=== PATIENT | male | born 1950 | race Caucasian/White ===

== ENCOUNTER → 2021-05-23 14:03 | Outpatient (CLI) | payer MEDICARE, OTHER, SELFPAY ==
[2021-05-23 15:38] LABS: Alanine Aminotransferase 20 U/L (12-78); Albumin Level 4.3 g/dl (3.5-5.0); Albumin/Globulin Ratio 1.3 (1.1-1.8); Alkaline Phosphatase 85 U/L (38-126); Anion Gap 11.7 mEq/L (5-15); Aspartate Amino Transferase 30 U/L (17-59); Bilirubin,Total 1.8 mg/dl (0.2-1.3); Blood Urea Nitrogen 16 mg/dl (9-20); Carbon Dioxide 28 mmol/L (22.0-30.0); Chloride 105 mmol/L (98-107); Chol/HDL Ratio 3.3 (1-3.5); Cholesterol 138 mg/dl (140-200); Estimated Glomerular Filt Rate 96 ml/min (>60); GFR (African American) 116 ML/MIN (>60); Globulin 3.2 g/dL (1.3-3.2); Glucose 103 mg/dl (74-100); HDL Cholesterol 42 mg/dl (40-60); Potassium 5.7 mmoL/L (3.5-5.1); Sodium 139 mmol/L (136-145); Total Protein,Serum 7.5 g/dl (6.3-8.2); Triglycerides 91 mg/dl (30-150); VLDL Cholesterol 18 mg/dL (0-40)
[2021-05-23 15:49] LABS: Direct LDL Cholesterol 73.48 mg/dL (100-129)
[2021-05-23 16:07] LABS: Prostate Specific Ag Screen 1.1 ng/ml (0.0-4.0)
== END ==
LOC: LAB 14:04 → LAB.DROPOF 14:05
PROVIDERS: Visit Provider Internal Medicine
DX: I10 Essential (primary) hypertension (principal); I48.0 Paroxysmal atrial fibrillation; R73.01 Impaired fasting glucose; E78.5 Hyperlipidemia, unspecified; N41.9 Inflammatory disease of prostate, unspecified; Z12.5 Encounter for screening for malignant neoplasm of prostate
CPT/HCPCS: 80053; 80061; G0103

== ENCOUNTER → 2021-11-27 14:10 | Outpatient (CLI) | payer MEDICARE, OTHER, SELFPAY ==
[2021-11-27 15:15] LABS: Basophils # 0.1 K/mm3 (0-0.2); Basophils % 1.1 % (0.1-2.0); Eosinophils # 0.2 K/mm3 (0.0-0.4); Eosinophils % 2.4 % (0.1-12.0); Hematocrit 44.9 % (42.0-52.0); Hemoglobin 15.3 g/dL (14.1-18.0); Lymphocytes # 2.5 K/mm3 (0.7-4.5); Lymphocytes % 39.4 % (10-50); Mean Corpuscular HGB Conc 34.1 g/dL (31.8-35.4); Mean Corpuscular Hemoglobin 32.1 pg (27.0-31.2); Mean Corpuscular Volume 94.1 fl (80-94); Mean Platelet Volume 9.5 fl (7.4-10.4); Monocytes # 0.4 K/mm3 (0.1-1.0); Monocytes % 6.9 % (1.7-9.3); Neutrophils # 3.1 K/mm3 (1.8-7.8); Neutrophils % 50.2 % (37.0-80.0); Platelet Count 216 K/mm3 (142-424); Red Blood Count 4.77 M/mm3 (4.60-6.20); White Blood Count 6.3 K/mm3 (4.8-10.8)
[2021-11-27 15:34] LABS: Alanine Aminotransferase 18 U/L (12-78); Albumin/Globulin Ratio 1.3 (1.1-1.8); Alkaline Phosphatase 94 U/L (38-126); Anion Gap 10.8 mEq/L (5-15); Aspartate Amino Transferase 26 U/L (17-59); Bilirubin,Total 1.3 mg/dl (0.2-1.3); Blood Urea Nitrogen 15 mg/dl (9-20); Calcium 8.5 mg/dl (8.4-10.2); Carbon Dioxide 28 mmol/L (22.0-30.0); Chloride 105 mmol/L (98-107); Chol/HDL Ratio 4.1 (1-3.5); Cholesterol 118 mg/dl (140-200); Estimated Glomerular Filt Rate 74 ml/min (>60); GFR (African American) 90 ML/MIN (>60); Glucose 100 mg/dl (74-100); HDL Cholesterol 29 mg/dl (40-60); Potassium 4.8 mmoL/L (3.5-5.1); Sodium 139 mmol/L (136-145); Triglycerides 126 mg/dl (30-150); VLDL Cholesterol 25 mg/dL (0-40)
[2021-11-27 15:45] LABS: Direct LDL Cholesterol 60.49 mg/dL (100-129)
== END ==
PROVIDERS: PCP Internal Medicine; Visit Provider Internal Medicine
DX: I48.0 Paroxysmal atrial fibrillation (principal); I10 Essential (primary) hypertension; R73.01 Impaired fasting glucose; E78.5 Hyperlipidemia, unspecified
CPT/HCPCS: 80053; 80061; 85025

== ENCOUNTER → 2022-05-30 12:06 | Outpatient (CLI) | payer MEDICARE, OTHER, SELFPAY ==
[2022-05-30 14:19] LABS: Chloride 101 mmol/L (98-107)
[2022-05-30 14:20] LABS: Potassium 4.8 mmoL/L (3.5-5.1)
[2022-05-30 14:22] LABS: Blood Urea Nitrogen 17 mg/dl (9-20); Estimated Glomerular Filt Rate 83 ml/min (>60); GFR (African American) 101 ML/MIN (>60)
[2022-05-30 14:23] LABS: Alanine Aminotransferase 21 U/L (12-78); Albumin Level 4.4 g/dl (3.5-5.0); Albumin/Globulin Ratio 1.3 (1.1-1.8); Alkaline Phosphatase 102 U/L (38-126); Aspartate Amino Transferase 30 U/L (17-59); Bilirubin,Total 1.5 mg/dl (0.2-1.3); Calcium 9.3 mg/dl (8.4-10.2); Carbon Dioxide 28 mmol/L (22.0-30.0); Cholesterol 148 mg/dl (140-200); Globulin 3.4 g/dL (1.3-3.2); Glucose 101 mg/dl (74-100); HDL Cholesterol 33 mg/dl (40-60); Total Protein,Serum 7.8 g/dl (6.3-8.2); Triglycerides 146 mg/dl (30-150); VLDL Cholesterol 29 mg/dL (0-40)
[2022-05-30 14:24] LABS: Chol/HDL Ratio 4.5 (1-3.5)
[2022-05-30 14:34] LABS: Direct LDL Cholesterol 70.85 mg/dL (100-129)
[2022-05-30 15:04] LABS: Prostate Specific Ag Screen 1.1 ng/ml (0.0-4.0)
[2022-05-30 15:42] LABS: Anion Gap 16.8 mEq/L (5-15); Sodium 141 mmol/L (136-145)
== END ==
PROVIDERS: PCP Internal Medicine; Visit Provider Internal Medicine
DX: R73.01 Impaired fasting glucose (principal); E78.5 Hyperlipidemia, unspecified; I10 Essential (primary) hypertension; N40.1 Benign prostatic hyperplasia with lower urinary tract symptoms; Z12.5 Encounter for screening for malignant neoplasm of prostate
CPT/HCPCS: 80053; 80061; G0103

== ENCOUNTER → 2023-02-12 13:31 | Outpatient (CLI) | payer MEDICARE, OTHER, SELFPAY ==
[2023-02-12 15:33] LABS: Basophils # 0.1 K/mm3 (0-0.2); Basophils % 0.7 % (0.1-2.0); Eosinophils # 0.1 K/mm3 (0.0-0.4); Eosinophils % 2.1 % (0.1-12.0); Hematocrit 49.3 % (42.0-52.0); Hemoglobin 15.8 g/dL (14.1-18.0); Lymphocytes # 2.2 K/mm3 (0.7-4.5); Lymphocytes % 33.2 % (10-50); Mean Corpuscular Hemoglobin 30.2 pg (27.0-31.2); Mean Corpuscular Volume 94.4 fl (80-94); Mean Platelet Volume 9.1 fl (7.4-10.4); Monocytes # 0.5 K/mm3 (0.1-1.0); Monocytes % 8.1 % (1.7-9.3); Neutrophils # 3.6 K/mm3 (1.8-7.8); Neutrophils % 55.8 % (37.0-80.0); Platelet Count 215 K/mm3 (142-424); Red Blood Count 5.22 M/mm3 (4.60-6.20); Red Cell Distribution Width 13.7 % (11.5-17.5); White Blood Count 6.5 K/mm3 (4.8-10.8)
[2023-02-12 16:36] LABS: Alanine Aminotransferase 23 U/L (12-78); Albumin Level 4.3 g/dl (3.5-5.0); Albumin/Globulin Ratio 1.2 (1.1-1.8); Alkaline Phosphatase 111 U/L (38-126); Anion Gap 14.4 mEq/L (5-15); Aspartate Amino Transferase 27 U/L (17-59); Bilirubin,Total 1.4 mg/dl (0.2-1.3); Blood Urea Nitrogen 20 mg/dl (9-20); Calcium 8.7 mg/dl (8.4-10.2); Carbon Dioxide 28 mmol/L (22.0-30.0); Chloride 105 mmol/L (98-107); Cholesterol 136 mg/dl (140-200); Estimated Glomerular Filt Rate 66 ml/min (>60); GFR (African American) 80 ML/MIN (>60); Globulin 3.5 g/dL (1.3-3.2); Glucose 109 mg/dl (74-100); HDL Cholesterol 34 mg/dl (40-60); Potassium 5.4 mmoL/L (3.5-5.1); Sodium 142 mmol/L (136-145); Total Protein,Serum 7.8 g/dl (6.3-8.2); Triglycerides 130 mg/dl (30-150); VLDL Cholesterol 26 mg/dL (0-40)
[2023-02-12 16:47] LABS: Direct LDL Cholesterol 71.73 mg/dL (100-129)
== END ==
PROVIDERS: PCP Internal Medicine; Visit Provider Internal Medicine
DX: I10 Essential (primary) hypertension (principal); I48.0 Paroxysmal atrial fibrillation; R73.01 Impaired fasting glucose; E78.5 Hyperlipidemia, unspecified; M17.12 Unilateral primary osteoarthritis, left knee; N41.9 Inflammatory disease of prostate, unspecified
CPT/HCPCS: 80053; 80061; 85025

== ENCOUNTER 2023-08-16 12:34 | Outpatient (CLI) | payer MEDICARE, OTHER, SELFPAY ==
[2023-08-16 15:15] LABS: Alanine Aminotransferase 22 U/L (12-78); Albumin Level 4.4 g/dl (3.5-5.0); Albumin/Globulin Ratio 1.2 (1.1-1.8); Alkaline Phosphatase 83 U/L (38-126); Anion Gap 13.4 mEq/L (5-15); Aspartate Amino Transferase 33 U/L (17-59); Bilirubin,Total 1.7 mg/dl (0.2-1.3); Blood Urea Nitrogen 18 mg/dl (9-20); Calcium 8.7 mg/dl (8.4-10.2); Carbon Dioxide 27 mmol/L (22.0-30.0); Chloride 106 mmol/L (98-107); Chol/HDL Ratio 4.4 (1-3.5); Cholesterol 128 mg/dl (140-200); Estimated Glomerular Filt Rate 83 ml/min (>60); GFR (African American) 101 ML/MIN (>60); Globulin 3.6 g/dL (1.3-3.2); Glucose 109 mg/dl (74-100); HDL Cholesterol 29 mg/dl (40-60); Potassium 5.4 mmoL/L (3.5-5.1); Sodium 141 mmol/L (136-145); Triglycerides 131 mg/dl (30-150); VLDL Cholesterol 26 mg/dL (0-40)
[2023-08-16 15:25] LABS: Direct LDL Cholesterol 69.66 mg/dL (100-129)
[2023-08-16 15:44] LABS: Prostate Specific Ag Screen 0.6 ng/ml (0.0-4.0)
== END 2023-08-16 23:59 ==
LOC: LAB.DROPOF 12:36
PROVIDERS: PCP Internal Medicine; Visit Provider Internal Medicine
DX: I10 Essential (primary) hypertension (principal); I48.91 Unspecified atrial fibrillation; E78.5 Hyperlipidemia, unspecified; M17.12 Unilateral primary osteoarthritis, left knee; N40.1 Benign prostatic hyperplasia with lower urinary tract symptoms; Z12.5 Encounter for screening for malignant neoplasm of prostate
CPT/HCPCS: 80053; 80061; G0103

== ENCOUNTER 2024-02-13 18:23 | Outpatient (CLI) | payer MEDICARE, OTHER, SELFPAY ==
[2024-02-13 12:17] LABS: Basophils # 0.1 K/mm3 (0-0.2); Basophils % 0.9 % (0.1-2.0); Eosinophils # 0.1 K/mm3 (0.0-0.4); Eosinophils % 2.3 % (0.1-12.0); Hematocrit 47.2 % (42.0-52.0); Hemoglobin 15.5 g/dL (14.1-18.0); Lymphocytes % 33.6 % (10-50); Mean Corpuscular HGB Conc 32.8 g/dL (31.8-35.4); Mean Corpuscular Hemoglobin 31.9 pg (27.0-31.2); Mean Corpuscular Volume 97.1 fl (80-94); Mean Platelet Volume 8.6 fl (7.4-10.4); Monocytes # 0.4 K/mm3 (0.1-1.0); Monocytes % 6.6 % (1.7-9.3); Neutrophils # 3.4 K/mm3 (1.8-7.8); Neutrophils % 56.6 % (37.0-80.0); Platelet Count 204 K/mm3 (142-424); Red Blood Count 4.86 M/mm3 (4.60-6.20); Red Cell Distribution Width 14.2 % (11.5-17.5)
[2024-02-13 12:47] LABS: Alanine Aminotransferase 19 U/L (12-78); Albumin/Globulin Ratio 1.1 (1.1-1.8); Alkaline Phosphatase 101 U/L (38-126); Anion Gap 11.4 mEq/L (5-15); Aspartate Amino Transferase 23 U/L (17-59); Bilirubin,Total 1.3 mg/dl (0.2-1.3); Blood Urea Nitrogen 20 mg/dl (9-20); Calcium 8.8 mg/dl (8.4-10.2); Carbon Dioxide 26 mmol/L (22.0-30.0); Chloride 107 mmol/L (98-107); Chol/HDL Ratio 3.4 (1-3.5); Cholesterol 119 mg/dl (140-200); Estimated Glomerular Filt Rate 73 ml/min (>60); GFR (African American) 89 ML/MIN (>60); Globulin 3.6 g/dL (1.3-3.2); Glucose 117 mg/dl (74-100); HDL Cholesterol 35 mg/dl (40-60); Potassium 4.4 mmoL/L (3.5-5.1); Sodium 140 mmol/L (136-145); Total Protein,Serum 7.6 g/dl (6.3-8.2); Triglycerides 101 mg/dl (30-150); VLDL Cholesterol 20 mg/dL (0-40)
[2024-02-13 12:58] LABS: Direct LDL Cholesterol 57.78 mg/dL (100-129)
== END 2024-02-13 23:59 | disposition home or self-care (01) ==
LOC: LAB.DROPOF 18:24
PROVIDERS: PCP Internal Medicine; Visit Provider Internal Medicine
DX: E78.5 Hyperlipidemia, unspecified (principal); I10 Essential (primary) hypertension; R73.02 Impaired glucose tolerance (oral)
CPT/HCPCS: 80053; 80061; 85025

== ENCOUNTER 2024-08-13 12:26 | Outpatient (CLI) | payer MEDICARE, OTHER, SELFPAY ==
[2024-08-13 12:58] LABS: Albumin Level 4.2 g/dl (3.5-5.0); Chloride 105 mmol/L (98-107); Sodium 139 mmol/L (136-145)
[2024-08-13 13:01] LABS: Alanine Aminotransferase 23 U/L (12-78); Albumin/Globulin Ratio 1.4 (1.1-1.8); Alkaline Phosphatase 92 U/L (38-126); Aspartate Amino Transferase 29 U/L (17-59); Bilirubin,Total 1.7 mg/dl (0.2-1.3); Blood Urea Nitrogen 19 mg/dl (9-20); Calcium 8.7 mg/dl (8.4-10.2); Carbon Dioxide 26 mmol/L (22.0-30.0); Chol/HDL Ratio 3.9 (1-3.5); Cholesterol 125 mg/dl (140-200); Estimated Glomerular Filt Rate 73 ml/min (>60); GFR (African American) 89 ML/MIN (>60); Globulin 3.1 g/dL (1.3-3.2); Glucose 113 mg/dl (74-100); HDL Cholesterol 32 mg/dl (40-60); Total Protein,Serum 7.3 g/dl (6.3-8.2); Triglycerides 131 mg/dl (30-150); VLDL Cholesterol 26 mg/dL (0-40)
[2024-08-13 13:13] LABS: Direct LDL Cholesterol 64.09 mg/dL (100-129)
== END 2024-08-13 23:59 | disposition home or self-care (01) ==
LOC: LAB.DROPOF 12:26
PROVIDERS: PCP Internal Medicine; Visit Provider Internal Medicine
DX: I48.0 Paroxysmal atrial fibrillation (principal); E78.5 Hyperlipidemia, unspecified; I10 Essential (primary) hypertension; R73.02 Impaired glucose tolerance (oral)
CPT/HCPCS: 80053; 80061

== ENCOUNTER 2025-02-11 09:10 | Outpatient (CLI) | payer MEDICARE, OTHER, SELFPAY ==
[2025-02-11 09:53] LABS: Hematocrit 51.2 % (42.0-52.0); Hemoglobin 17.1 g/dL (14.1-18.0); Immature Granulocytes % 0.2 %; Mean Corpuscular HGB Conc 33.4 g/dL (31.8-35.4); Mean Corpuscular Hemoglobin 31.1 pg (27.0-31.2); Mean Corpuscular Volume 93.3 fl (80-94); Nucleated Red Blood Cells % 0 %; Platelet Count 170 K/mm3 (142-424); Red Blood Count 5.49 M/mm3 (4.60-6.20); Red Cell Distribution Width-SD 43.8 fL; White Blood Count 6.2 K/mm3 (4.8-10.8)
[2025-02-11 10:35] LABS: Albumin Level 4.0 g/dl (3.5-5.0); Chloride 104 mmol/L (98-107); Potassium 4.8 mmoL/L (3.5-5.1); Sodium 138 mmol/L (136-145)
[2025-02-11 10:38] LABS: Alanine Aminotransferase 19 U/L (12-78); Albumin/Globulin Ratio 0.9 (1.1-1.8); Alkaline Phosphatase 106 U/L (38-126); Anion Gap 9.8 mEq/L (5-15); Aspartate Amino Transferase 26 U/L (17-59); Bilirubin,Total 1.4 mg/dl (0.2-1.3); Blood Urea Nitrogen 17 mg/dl (9-20); Carbon Dioxide 29 mmol/L (22.0-30.0); Cholesterol 139 mg/dl (140-200); Creatinine,Serum 1.00 mg/dl (0.66-1.25); Estimated Glomerular Filt Rate 73 ml/min (>60); GFR (African American) 89 ML/MIN (>60); Globulin 4.4 g/dL (1.3-3.2); Total Protein,Serum 8.4 g/dl (6.3-8.2); Triglycerides 127 mg/dl (30-150)
[2025-02-11 10:39] LABS: Calcium 9.4 mg/dl (8.4-10.2); Glucose 130 mg/dl (74-100); HDL Cholesterol 41 mg/dl (40-60)
== END 2025-02-11 23:59 | disposition home or self-care (01) ==
LOC: LAB.DROPOF 02-12 13:51
PROVIDERS: PCP Internal Medicine; Visit Provider Internal Medicine
DX: I48.0 Paroxysmal atrial fibrillation (principal); R73.02 Impaired glucose tolerance (oral); E78.5 Hyperlipidemia, unspecified; I10 Essential (primary) hypertension
CPT/HCPCS: 80053; 80061; 85025

== ENCOUNTER 2025-05-31 15:36 | Outpatient (CLI) | payer MEDICARE, OTHER, SELFPAY ==
--- NOTE | 2025-05-31 15:40 | XR_ITS ---
FINAL REPORT TECHNIQUE: 3 views lumbar spine CLINICAL HISTORY: Lumbago with left sciatica COMPARISON: None FINDINGS: LUMBAR SPINE: AP and lateral views of the lumbar spine were obtained. There is no prior exam for comparison. There is no acute fracture or malalignment. Vertebral body height is preserved. Disc space narrowing at the L4-5 and L5-S1 levels. Moderate anterior osteophytes are present. There is moderate facet sclerosis in the lower lumbar spine. No acute paraspinal abnormality. IMPRESSION: Degenerative change of the lower lumbar spine, acute osseous abnormality. Reviewed, Interpreted and Dictated by Kole Yi MD Transcribed by Lanie Mendoza Authenticated and . [facility]
== END 2025-05-31 23:59 | disposition home or self-care (01) ==
LOC: RAD 15:38
PROVIDERS: PCP Internal Medicine; Visit Provider Internal Medicine
DX: M51.16 Intervertebral disc disorders with radiculopathy, lumbar region (principal); M51.17 Intervertebral disc disorders with radiculopathy, lumbosacral region; G95.89 Other specified diseases of spinal cord
CPT/HCPCS: 72100

== ENCOUNTER 2025-07-13 11:00 | Outpatient (RCR) | payer MEDICARE, SELFPAY ==
--- NOTE | 2025-06-14 10:15 | HMH.PTOPEV ---
PT Evaluation Rehab PT Outpatient Evaluation Start: 06/14/25 08:56 Freq: Status: Active Protocol: Document 06/14/25 08:56 [email or web address] (Rec: 06/14/25 10:15 [email or web address] [id number]) E-signed By Leonid Jacobs, PT Outpatient Therapy Subjective History Subjective History Pt. is a 74 year old male who presents to [facility] Out[facility] in [place] for the PT outpatient initial evaluation this date(06/14/25 ) w/ c/o sub-acute on chronic and constant lumbar(L>R) and L LE P!, burning, and stiffness of insidious onset that has progressively been getting worse over the last 2-3 months. Pt. c/o years of LBP! and stiffness, however, vocalizes symptoms worsening and c/o burning that would refer into the L LE. Pt. reports intermittent burning into the L LE ankle, however, it usually stays into the L LE hip. Pt. reports, according to Dr. Alvarado I have two discs that are flattened and compressing my sciatic nerve. Recent diagnostic imaging(radiograph) of L-spine indicates osteoarthritis, osteophytes, and inflammation per pt. report. Pt. denies having any injections for current complaint of P!. Pt. reports he just finished his round of prescribed Prednisone that resulted in the best I' ve felt in the last 2-3 months. Pt. also reports being instructed to take OTC Tylenol PRN. Pt. reports having difficulty w/ sleeping on his left side secondary to c /o P!, but also prolonged sitting w/ driving and mowing the lawn worsen symptom complaint. Pt. c/o increased stiffness and burning in the L-spine when he goes to stand up out of a prolonged position. Pt. reports having some symptom relief after I get moving some. Pt. RTMD end of July. Current medications include Tamsulosin, Xarelto, Simvastatin, Anti-Acid, Prednisone , Tylenol, Bisoprolol. 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 Pt. reports his brother was diagnosed w/ prostate cancer. New diagnosis of No cancer in past 12 months? Chief Complaint Pain,Stiff,Paresthesia,Weakness,Other Symptom Type Ache,Sharp,Dull,Stabbing,Burning,Shooting Symptoms Relieved By Rest/Positioning,Ice,Prescription Meds,Activity Symptoms Aggravated Supine,Sitting,Standing,Bending/Stooping,Lifting By Prior Functional None Limitations Current Functional Lifting,Driving,Sleeping,Standing,Sitting,Recreation Limitations Activity,Bending/Stooping Symptom Description Constant but Variable,Activity Dependent Level of pain today 1 (0-10) Pain scale - at its 1 best (0-10) Pain scale - at its 9 worst (0-10) Lumbopelvic Eval Posture Thoracic Spine Increased Kyphosis Posture Standing Position Lumbar Spine Posture Flattened Standing Position Assistive device Assistive Devices None / NA Gait Observation General Gait Pattern No Deviations/Normal Observation Palapation tenderness bilateral lumbar spinal Yes: L4/L5/S1 tenderness Lumbar/Sacral Tenderness Palpation Findings Lumbar/Sacral grade 4 +TTP Palpation Overall Comment Accessory Movement L-spine Vertebrae Central P/A [place],Right P/A [place],Left P/A [place] Accessory Movements that Elicit Symptoms L4 bilateral L5 bilateral S1 bilateral Range of Motion Lumbar Spine Active 51 Flexion Range of Motion (degrees) Lumbar Spine Active 19 Extension Range of Motion (degrees) Left Lumbar Spine 26 Lateral Flexion Active Range of Motion (degrees) Right Lumbar Spine 18 Lateral Flexion Active Range of Motion (degrees) Lumbar Spine ROM Soft Tissue Tightness,Muscle Weakness,Muscle Tone,Pain Limitations Manual Muscle Test Bilateral Knee Extension 5 Normal Strength Grade Knee Flexion 5 Normal Strength Grade Hip Flexion Strength 5 Normal Grade Hip Abduction 5 Normal Strength Grade Hip Adduction 5 Normal Strength Grade Hip External 5 Normal Rotation Strength Grade Hip Internal 5 Normal Rotation Strength Grade Hip Extension 5 Normal Strength Grade Gluteus Nito 5 Normal Strength Grade Extensor Hallucis 5 Normal Longus Strength Grade Ankle Dorsiflexion 5 Normal Strength Grade Gastronemius/Soleus 5 Normal Strength Grade DTR Rt Patellar 2+ Lt Patellar 2+ Rt Gastroc/Soleus 2+ Lt Gastroc/Soleus 2+ Altered Sensation Left LE Dermatome Level L3 Comment decreased light touch of L compared to R secondary to hx. S/P L knee reconstruction at 18 yoa Special Tests Lumbar Spine Screen Positive Sciatic Nerve Negative Left,Negative Right Tension Test Hip 90-90 Straight Positive Left Leg Raise Test Unilateral Straight Positive Left Leg Raise (Lasegue) Test Oswestry Index Section 1 Pain Intensity The pain comes and goes and is very mild Section 2 Personal Care ( change my way of washing or dressing in order to avoid Washing,[place]) pain Section 3 Lifting I can lift heavy weights, but it gives me extra pain Section 4 Walking I have no pain when walking Section 5 Sitting I can sit in my favorite chair for as long as I like Section 6 Standing I can stand as long as I want without pain Section 7 Sleeping I get no pain in bed Section 8 Social Life My social life is normal and gives me no extra pain Section 9 Traveling I get no pain when traveling Section 10 Changing Degreee of My pain is getting better Pain Score and Risk Level Oswestry Score 2 Oswestry Risk Level No Disability Outpatient Therapy Assessment Impairments Problems/ Palpation Tenderness,Impaired Range of Motion,Impaired Impairmments Endurance,Impaired Transfers,Impaired Standing,Impaired Sitting,Impaired Driving,Impaired Lifting,Impaired Bending,Impaired Recreational Activities,Subjective C/O Pain,Impaired Self Care/Self Management Prognosis Rehab Potential Good Comment w/ HEP compliancy Clinical Impression Consistent with Yes Diagnosis Consistent with lumbago w/ radiculopathy, L Additional details: L-spine intervertebral degeneration PT Patient Goals PT Patient Goals PT Short Term STG#1.) Pt. will subjectively vocalize comparable L- Patient Goals spine P! a 5/10 @ worse in 4 wks. for improved QOL. STG#2.) Pt. will demonstrate compliancy w/ initial HEP in 4 wks. for improved prognosis w/ Physical Therapy. STG#3.) Pt. will exhibit grade 2 +TTP to L4 and L5 spinous and transverse processes in 4 wks. for improved sleep on his left side. PT Bilingual Office Assistant Patient LTG#1.) Pt. will subjectively vocalize comparable L- Goals spine P! a 2/10 @ worse in 6-8 wks. for improved QOL. LTG#2.) Pt. will demonstrate compliancy w/ advanced HEP in 6-8 wks. for optimal prognosis w/ Physical Therapy. LTG#3.) Pt. will exhibit grade 1 +TTP to L4 and L5 spinous and transverse processes in 6-8 wks. to return to sleeping on his left side. LTG#4.) Pt. will exhibit a 15 degree improvement in lumbar flexion ROM w/o difficulty in 6-8 wks. to return to sitting for 1 hour w/o difficulty. Outpatient Therapy Plan of Care Treatment Plan May Include Therapeutic Exercise Yes Including Home Exercise Program Manual Therapy Yes Techniques Neuromuscular Re- Yes education Therapeutic Yes Activities to Return to Previous Functional/Work Level ADL/Self Care Yes Education Mechanical Traction Yes Dry Needling Yes Thermal Modalities Yes Electrical Yes Stimulation Ultrasound/ Yes Phonophoresis Iontophoresis Yes Vasopneumatic Yes Compression Pump Massage Yes Eval/Re-Eval Yes Frequency Times per week 2 Duration Number of Weeks 6-8 Addendums This patient is a No candidate for social or vocational rehab ? Patient/Guardian Yes verbally acknowledges understanding of treatment program and consents to further treatment? Patient/Guardian Yes verbally acknowledges understanding of diagnosis, prognosis and goals for treatment? Eval Complexity PT Charges [id number] - Low Complexity Shoulder/Elbow Eval Shoulder Objective Measurements Elbow Objective Measurements PHYSICIAN CERTIFICATION: I certify the specified therapy services for Terry Lowe are required, authorized, and reviewed every 30 days.
== END 2025-07-14 11:47 | disposition home or self-care (01) ==
LOC: PT.CARL 11:00
PROVIDERS: PCP Internal Medicine; Visit Provider Internal Medicine
DX: M47.816 Spondylosis without myelopathy or radiculopathy, lumbar region (principal); M47.817 Spondylosis without myelopathy or radiculopathy, lumbosacral region; M54.42 Lumbago with sciatica, left side; M51.369 Other intervertebral disc degeneration, lumbar region without mention of lumbar back pain or lower extremity pain
CPT/HCPCS: 97110; 97140; 97161; 97530